=== PATIENT | female | born 1945 ===

== ENCOUNTER 2020-05-09 13:10 | Emergency (ER) | payer SELFPAY ==
--- NOTE | 2020-05-09 13:22 | Event Note ---
ED Screening Note Date of service: 05/09/20 Time: 13:20 ED Screening Note: 75-year-old female patient with history of hypertension presents to the emergency department with her daughter with complaint of fever and productive cough for 1 week. Patient returned to the [facility] from [facility] on May 02. She was sent to the emergency department from a local clinic for further evaluation of possible pneumonia vs. COVID-19. Last dose of Tylenol was approximately 5 hours earlier. General: Awake, appropriately interactive, no acute distress. Neck: Supple. Full range of motion intact. Cardiovascular: Regular rate and rhythm. Normal peripheral perfusion. Pulmonary: Clear to auscultation bilaterally. No respiratory distress. Patient is speaking normally without use of accessory muscles. Skin: No apparent rashes or lesions. Neurological: No facial asymmetry. Speech is clear. Follows commands. Patient is alert and oriented. Musculoskeletal: Moves all four extremities spontaneously with normal range of motion. Psych: Cooperative. Appropriate mood and affect. This initial assessment/diagnostic orders/clinical plan/treatment(s) is/are subject to change based on patients health status, clinical progression and re- assessment by fellow clinical providers in the ED. Further treatment and workup at subsequent clinical providers discretion. Patient/guardian urged not to elope from the ED as their condition may be serious if not clinically assessed and managed.
--- NOTE | 2020-05-09 13:51 | XRay Report ---
CHEST 2 VIEWS INDICATION / CLINICAL INFORMATION: fever/cough. COMPARISON: None available. FINDINGS: SUPPORT DEVICES: None. HEART / MEDIASTINUM: No significant abnormality. LUNGS / PLEURA: Mild increased interstitial prominence within the lung bases. No pneumothorax. ADDITIONAL FINDINGS: No significant additional findings. IMPRESSION: 1. Mild increased interstitial prominence of the lungs and lung bases. No focal air consolidation. Signer Name: Satish Lindsey MD Signed: 05/09/2020 1:47 PM Workstation Name: [id number]
--- NOTE | 2020-05-09 14:14 | Emergency Department Report ---
ED General Adult HPI - General Chief complaint: Upper Respiratory Infection Stated complaint: COLD SYMPTOMS/FEVER Time Seen by Provider: 05/09/20 14:11 Source: gas welding machine operator Mode of arrival: Ambulatory Limitations: Language Barrier - History of Present Illness Initial comments: 75-year-old female patient with history of hypertension presents to the emergen cy department with her daughter with complaint of fever and productive cough for 1 week. Patient returned to the [facility] from [facility] on May 02. She was sent to the emergency department from a local clinic for further evaluation of possible pneumonia vs. COVID-19. Last dose of Tylenol was approximately 5 hours earlier. No current steroid or antibiotic use. No known sick contacts. She is also taking Ibuprofen for pain and fever. She is scheduled to return to [facility] next week. Denies sore throat, ear pain, chest pain, wheezing, shortness of breath, abdominal pain, vomiting, diarrhea, syncope. Denies all other complaints at this time. - Related Data Previous Rx's Medication Instructions Recorded Last Taken Type Benzonatate [Tessalon Perles] 200 mg PO Q8HR #30 capsule 05/09/20 Unknown Rx Allergies Allergy/AdvReac Type Severity Reaction Status Date / Time No Known Allergies Allergy Unverified 05/09/20 13:14 ED Review of Systems ROS: Stated complaint: COLD SYMPTOMS/FEVER Other details as noted in HPI Other: GENERAL: Positive for fever. ENT: Negative for ear pain, difficulty hearing, sore throat, nasal congestion, epistaxis. CARDIOVASCULAR: Negative for chest pain, palpitations, lower extremity swelling. PULMONARY: Positive for cough. GASTROINTESTINAL: Negative for abdominal pain, nausea, vomiting, diarrhea, constipation. MUSCULOSKELETAL: Negative for joint pain, joint swelling, myalgias, back pain, neck pain. NEUROLOGICAL: Negative for headache, seizure, syncope, paresthesias, weakness. INTEGUMENTARY: Negative for erythema, rash, diaphoresis, laceration, ecchymosis. HEMATOLOGICAL: Negative for hemoptysis, hematemesis, hematochezia, hematuria. PSYCHIATRIC: Negative for hallucinations, suicidal ideation, homicidal ideation, anxiety, depression. ED Past Medical Hx - Past Medical History Hx Hypertension: Yes Additional medical history: HEART DIEASE - Surgical History Past Surgical History?: No - Social History Smoking Status: Never Smoker Substance Use Type: None - Medications Home Medications: Home Medications Medication Instructions Recorded Confirmed Last Taken Type Benzonatate [Tessalon Perles] 200 mg PO Q8HR #30 capsule 05/09/20 Unknown Rx ED Physical Exam - General Limitations: Language Barrier - Other Other exam information: General: Awake and alert. No acute distress. Head: Atraumatic, normocephalic. Eyes: EOMI. Pupils are equal and round. Normal sclera and conjunctiva. ENT: Oral mucosa is moist. Normal pharyngeal exam. Neck: Supple. No lymphadenopathy. Pulmonary: No respiratory distress. Clear to auscultation bilaterally. Cardiac: Regular rate and rhythm. Pulses are palpable and equal bilaterally. No lower extremity cyanosis or edema. Skin: Warm and dry. No rashes. Abdomen: Soft, non-tender, non-protuberant. No guarding, rigidity, or rebound. Bowel sounds are normal. No organomegaly or masses noted. Back: Normal alignment. No CVA tenderness. Extremities: Symmetrical. Full range of motion intact. Neurological: Alert and oriented, appropriately interactive, no focal deficits. Psych: Cooperative. Appropriate mood and affect. Speech is evenly metered. Thoughts are logically construed. ED Course Vital Signs 05/09/20 05/09/20 05/09/20 13:18 13:21 14:00 Temperature 98.6 F Pulse Rate 102 H 88 Respiratory 20 Rate Blood Pressure 127/72 O2 Sat by Pulse 99 99 Oximetry 05/09/20 05/09/20 05/09/20 14:16 14:30 15:09 Temperature Pulse Rate 93 H 88 Respiratory 16 16 18 Rate Blood Pressure 128/61 128/61 O2 Sat by Pulse 100 87 100 Oximetry ED Medical Decision Making - Radiology Data Chest x-ray shows mild increased interstitial prominence of the lung and lung bases without focal air consolidation, per radiologist. - Medical Decision Making Differential diagnosis including but not limited to: pneumonia, influenza, pleural effusion, pneumothorax, viral upper respiratory infection Patient presents to the emergency department for evaluation of fever and productive cough after being seen at a local clinic. Provider was reportedly concerned about pneumonia and/or COVID-19. In the emergency department, her vital signs are stable. She is afebrile. Mild tachycardia present on arrival resolved without intervention. Chest x-ray without evidence of focal consolidation. COVID-19 testing is unavailable at this facility. No hypoxia, no respiratory distress, ambulatory without assistance. History and exam findings are suggestive of viral respiratory infection. Although patient may have COVID- 19, there is no clinical indication for further work-up on an emergent basis at this time. Patient will be discharged home with appropriate symptomatic treatment and advised to follow-up at a local outpatient clinic for COVID-19 testing if desired. Patient expressed understanding and is agreeable to plan of care. Disease transmission precautions discussed. Strict return precautions provided. Repeat exam is unremarkable and benign. History, exam, diagnostic testing, and current condition do not suggest worrisome pathology to warrant further testing, continued ED treatment, admission, or surgical evaluation at this point. Given the low probability of a significant medical illness, it would be more likely to result in harm than benefit to perform further testing at this stage. Discussed findings, presumptive diagnosis, need for follow-up and specific signs/symptoms that should prompt immediate return to the emergency department. Instructions were explained in detail to the patient in addition to giving written discharge information. Patient expressed understanding and was given the opportunity to ask questions, all of which were satisfactorily answered prior to discharge home. Critical care attestation.: If time is entered above; I have spent that time in minutes in the direct care of this critically ill patient, excluding procedure time. ED Disposition Clinical Impression: Viral upper respiratory tract infection with cough Disposition: DC- TO HOME OR SELFCARE Is pt being admited?: No Does the pt Need Aspirin: No Condition: Stable Instructions: Viral Respiratory Infection, [id number] Additional Instructions: Take Tylenol 1000 mg every 4 hours as needed for pain/fever. Take Ibuprofen 800 mg every 8 hours as needed for pain/fever. Take Tessalon Perles as directed for cough. Honey is an excellent natural cough suppressant. Rest. Drink plenty fluids. Wash hands frequently to prevent disease transmission. Do not share food or drinks with others. Follow-up with primary care provider this week. Call tomorrow to schedule an appointment. Our facility does not offer COVID-19 testing. If you want to be tested for COVID-19, you'll need to do so at a local outpatient clinic. Return to the emergency department immediately for new or worsening symptoms. Specifically, return to the emergency department immediately for worsening fever, increased difficulty breathing, dehydration, mental status changes, wheezing, chest pain, or any other concerns. Prescriptions: Benzonatate [Tessalon Perles] 200 mg PO Q8HR #30 capsule Referrals: INDY GREENE MD [Staff Physician] - 3-5 Days
[2020-05-09 14:47] VITALS: BP 128/61
== END 2020-05-09 15:14 | disposition home or self-care (01) ==
LOC: ED 13:10
DX: J06.9 Acute upper respiratory infection, unspecified (principal); I10 Essential (primary) hypertension; Z79.899 Other long term (current) drug therapy
CPT/HCPCS: 71046